=== PATIENT | female | born 1980 | race Asian ===

== ENCOUNTER 2019-11-23 15:45 | Outpatient (CLI) | payer OTHER, SELFPAY ==
--- NOTE | ~2019-11-23 | MM_ITS ---
EXAMINATION: MM screening alva BI w mere HISTORY: Baseline screening mammogram TECHNIQUE: Craniocaudal and mediolateral oblique 3-D tomosynthesis images were obtained and synthetic 2-D images were generated. CAD analysis was submitted and interpreted. COMPARISON: None, baseline BREAST PARENCHYMAL COMPOSITION: There are scattered areas of fibroglandular density. FINDINGS: RIGHT BREAST: An asymmetry is present in the anterior third of the slightly inner breast 2.4 cm from the nipple on the craniocaudal view. LEFT BREAST: There is no evidence of suspicious mass, calcification, or architectural distortion to s uggest malignancy. IMPRESSION: 1. Right breast asymmetry on the craniocaudal view. 2. Additional mammographic views and possible breast ultrasound are recommended to evaluate for malig zia and establish a baseline given that this is the first mammographic examination. BI-RADS Category 0: Incomplete: Needs additional imaging evaluation. Reviewed, dictated and finalized at location A. IMPRESSION: 1. Right breast asymmetry on the craniocaudal view. 2. Additional mammographic views and possible breast ultrasound are recommended to evaluate for malignancy and establish a baseline given that this is the fir st mammographic examination. BI-RADS Category 0: Incomplete: Needs additional imaging evaluation.
== END 2019-11-23 15:46 | disposition home or self-care (01) ==
LOC: ANHIMG 15:50
PROVIDERS: Visit Provider Obstetrics & Gynecology Gynecology
DX: Z12.31 Encounter for screening mammogram for malignant neoplasm of breast (principal); R92.8 Other abnormal and inconclusive findings on diagnostic imaging of breast
CPT/HCPCS: 77063; 77067

== ENCOUNTER 2019-12-17 11:05 | Outpatient (CLI) | payer OTHER, SELFPAY ==
--- NOTE | ~2019-12-17 | MM_ITS ---
EXAMINATION: MM diagnostic mammo unilat RT HISTORY: Right breast mammographic asymmetry in anterior third of slightly inner breast 2.4 cm from n ipple on screening craniocaudal view of 11/23/2019 TECHNIQUE: Additional 3-D tomosynthesis images of the right breast were performed and synthetic 2-D i mages were generated. CAD analysis was submitted and interpreted. COMPARISON: 11/23/2019bilateral digital screening mammogram FINDINGS: No reproducible mass is detected. There are superimposed vessels simulating a mass on the s creening CC view of 11/23/2019. IMPRESSION: 1. No mammographic evidence of malignancy 2. Routine mammographic screening is recommended. BI-RADS Category 1: Negative Reviewed, dictated and finalized at location A.
== END 2019-12-17 11:06 | disposition home or self-care (01) ==
LOC: ANHIMG 11:06
PROVIDERS: Visit Provider Obstetrics & Gynecology Gynecology
DX: R92.8 Other abnormal and inconclusive findings on diagnostic imaging of breast (principal)
CPT/HCPCS: 77065

== ENCOUNTER 2020-12-18 15:40 | Outpatient (CLI) | payer OTHER, SELFPAY ==
--- NOTE | ~2020-12-18 | MM_ITS ---
EXAMINATION: MM screening alva BI w mere HISTORY: Screening mammogram TECHNIQUE: Craniocaudal and mediolateral oblique 3-D tomosynthesis images were obtained and synthetic 2-D images were generated. CAD analysis was submitted and interpreted. COMPARISON: diagnostic right mammogram 11/23/2019 bilateral digital screening mammogram BREAST PARENCHYMAL COMPOSITION: There are scattered areas of fibroglandular density. FINDINGS: There is a circumscribed 3.8 mm benign-appearing opacity in the mid inner right breast at m id depth, not significantly changed since 12/17/2019. There is no evidence of suspicious mass, calcif ication, or architectural distortion to suggest malignancy in either breast. There has been no suspic ious interval change. IMPRESSION: 1. No mammographic evidence of malignancy. 2. Recommend routine screening mammography in one year. BI-RADS Category 2: Benign finding(s). Reviewed, dictated and finalized at location A.
== END 2020-12-18 15:41 | disposition home or self-care (01) ==
LOC: ANHIMG 15:41
PROVIDERS: Visit Provider Obstetrics & Gynecology Gynecology
DX: Z12.31 Encounter for screening mammogram for malignant neoplasm of breast (principal)
CPT/HCPCS: 77063; 77067

== ENCOUNTER 2022-01-22 17:00 | Outpatient (CLI) | payer OTHER, SELFPAY ==
--- NOTE | ~2022-01-22 | MM_ITS ---
EXAMINATION: MM screening alva BI w mere HISTORY: Screening mammogram TECHNIQUE: Craniocaudal and mediolateral oblique 3-D tomosynthesis images were obtained and synthetic 2-D images were generated. CAD analysis was submitted and interpreted. COMPARISON: 12/18/2020 bilateral screening mammogram 12/17/2019 diagnostic right mammogram 11/23/2019 bilateral screening mammogram BREAST PARENCHYMAL COMPOSITION: There are scattered areas of fibroglandular density. FINDINGS: There is no evidence of suspicious mass, calcification, or architectural distortion to sugg est malignancy in either breast. There has been no suspicious interval change. IMPRESSION: 1. No mammographic evidence of malignancy. 2. Recommend routine screening mammography in one year. BI-RADS Category 1: Negative Reviewed, dictated and finalized at location A. AIN/AIRLINE PILOT
== END 2022-01-22 17:01 | disposition home or self-care (01) ==
LOC: ANHIMG 17:01
PROVIDERS: Visit Provider Nurse Practitioner
DX: Z12.31 Encounter for screening mammogram for malignant neoplasm of breast (principal)
CPT/HCPCS: 77063; 77067

== ENCOUNTER 2023-02-26 07:53 | Outpatient (CLI) | payer OTHER, SELFPAY ==
--- NOTE | ~2023-02-26 | MM_ITS ---
EXAMINATION: MM screening [facility] BI w mere HISTORY: Screening mammogram TECHNIQUE: Craniocaudal and mediolateral oblique 3-D tomosynthesis images were obtained and synthetic 2-D images were generated. CAD analysis was submitted and interpreted. COMPARISON: 01/22/2022, 12/18/2020, 12/17/2019 BREAST PARENCHYMAL COMPOSITION: There are scattered areas of fibroglandular density. FINDINGS: No suspicious mass, calcification, or architectural distortion are identified in either hank ast to suggest malignancy. There has been no suspicious interval change. IMPRESSION: 1. No mammographic evidence of malignancy. 2. Recommend routine screening mammography in one year. BI-RADS Category 1: Negative Reviewed, dictated and finalized at location A. DUSTER
== END 2023-02-26 07:54 | disposition home or self-care (01) ==
LOC: ANHIMG 07:54
PROVIDERS: Visit Provider Nurse Practitioner
DX: Z12.31 Encounter for screening mammogram for malignant neoplasm of breast (principal)
CPT/HCPCS: 77063; 77067

== ENCOUNTER 2024-10-08 14:31 | Outpatient (CLI) | payer OTHER, SELFPAY ==
--- NOTE | ~2024-10-08 | US_ITS ---
EXAMINATION: US pelvic complete w TV INDICATION: Evaluate IUD placement Comparison:No prior studies for comparison. TECHNIQUE: Multiple transabdominal and endovaginal sonographic images of the pelvis performed. FINDINGS: The uterus measures 8.9 x 4.7 x 7 cm. There are fibroids of the uterine myometrium, largest measuring 1.3 cm. The endometrial complex measures 6 mm. IUD is present in the endometrium. There is trace fluid in the lower endometrium and cervix. The right ovary measures 2.1 x 2.2 x 2.8 cm and the left ovary measures 3.9 x 2.4 x 2.6 cm. There ar e small follicles in each ovary. Normal doppler signal in both ovaries. There is no free fluid in the pelvis. There are no abnormal masses seen on either side. IMPRESSION: 1. Fibroid uterus, largest discrete fibroid measuring 1.3 cm. 2: IUD present in the endometrium. Reviewed, dictated and finalized at location A.
--- OUTSIDE RECORDS SUMMARY | 2024-10-08 14:39 | XMS_ITS | Clinical Summary ---
Author Organization [employer] Address [address] 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
--- OUTSIDE RECORDS SUMMARY | 2024-10-08 14:39 | XMS_ITS | Encounter Summary ---
Author Organization [employer] Address [address] [place] [address] Care Team Providers Care Central Supply Tech Name Role Phone Conversion, History Primary Care Provider Prudence lucas Encounter Details Date Type Department Care Team (Late st Contact Info) Description 05/06/2007 Outpatient Historical [place] [address] [place] [address] [facility] Social History Tobacco Use Types Packs/Day Years Used Date Smoking Tobacco: Never Assessed Comments Unknown Sex and Gender Information Value Date Recorded Sex Assigned at Not on file Legal Sex Female 5:27 AM PERINATAL TECH Gender Identity Not on file Sexual Orientation Not on file documented as of this encounter Plan of Treatment Not on file documented as of this encounter Procedures Procedure Name Priority Date/Time Associated Diagnosis Comments PATHOLOGY Routine 06/16/2007 5:00 PM CDT POC , URINE Routine 06/16/2007 1:25 PM CDT HEMOGLOBIN AND HEMATOCRIT Stat 06/16/2007 1:19 PM CDT documented in this encounter Results * PATHOLOGY (06/16/2007 5:00 PM CDT) FINAL REPORT [facility] [address], [place] [address] Patient: TRINI BERUMEN : 1980 Procedure Date: 06/16/2007 Accession Date: 06/17/2007 Case No: [id number] Ordering Dr: ARISTEO GALE Case types AW, BW, FW, NW and SH are [place] [facility] [place] SURGICAL PATHOLOGY & NON-GYNECOLOGIC CYTOPATHOLOGY REPORT DIAGNOSIS SOFT TISSUE, LEFT ORBIT, EXCISION: - VASCULAR MALFORMATION. Specimen Description: Arteriovenous malformation left orbit. Operative Procedure: Not stated. Patient Information/Histo ry/Diagnosis: Not stated. Gross: Received in a single container labeled Trini Berumen, arteriovenous malformation left orbit is a 4 x 2.5 x 1.3-cm unoriented excision of yellow-sosa fibrofatty tissue. The surface is cauterized and hemorrhagic. The cut surface is remarkable for multiple dilated blood vessels. The remainder of the cut surface is yellow-sosa and lobulated. The specimen is entirely, sequentially submitted in cassettes A1 through A5. MACARIOA/SIERRA 06.17.2007 08:51 am Microscopic: Received are slides labeled [id number], Trini Berumen. Sections of left orbit identify a proliferation of variably-sized, thick and thin-walled blood vessels distributed amidst collagenous tissue, skeletal muscle, and adipose tissue. Vascular spaces are distended with red blood cells. There are focal, associated infiltrates of chronic inflammatory cells. PJC/PJS 06.18.2007 10:59 am Staging Form: No ELECTRONIC SIGNATURE FOR AYAKA BOLES M.D.- 06/18/07 12:59 pm INTERFACE SYSTEM 06/16/2007 5:00 PM CDT us Aristeo Gale MD PATHOLOGY/CYTOLOGY ORDERABLES Fi nal Result Performing Organization Address City/[facility]/ZIP Co de Phone Number INTERFACE SYSTEM Refer to clinic/hospital department * POC , URINE (06/16/2007 1:25 PM CDT) , URINE POC Negative Negative [facility] Urine specimen (specimen) 06/16/2007 1:25 PM CDT 06/16/2007 1:25 PM CDT us Aristeo Gale MD POINT OF CARE TESTING Final Resu lt [facility] [address] [place] [address] * HEMOGLOBIN AND HEMATOCRIT (06/16/2007 1:19 PM CDT) HEMOGLOBIN 14.3 11.8 - 14.8 g/dL [facility] HEMATOCRIT 43.1 35.5 - 44.0 % [facility] Blood specimen (specimen) 06/16/2007 1:19 PM CDT 06/16/2007 1:32 PM CDT Narrative [facility] - 06/16/2007 1:37 PM CDT RM35 Aristeo Greenberg [place] HEMATOLOGY ORDERABLES Final Resu lt [facility] [address] [place], [place] [address] documented in this encounter Visit Diagnoses Diagnosis 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
--- OUTSIDE RECORDS SUMMARY | 2024-10-08 14:39 | XMS_ITS | Encounter Summary ---
Author Organization [employer] Address 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
--- OUTSIDE RECORDS SUMMARY | 2024-10-08 14:39 | XMS_ITS | Encounter Summary ---
Author Organization [employer] Address [address] [place] [address] Care Team Providers Care Doctor Of Naprapathic Medicine Name Role Phone Conversion, History Primary Care Provider Prudence lucas Encounter Details Date Type Department Care Team (Late st Contact Info) Description 01/19/2007 Inpatient Historical [facility] Shan Rivas MD [address] [place] [address] -x0 (Work) Social History Tobacco Use Types Packs/Day Years Used Date Smoking Tobacco: Never Assessed Comments Unknown Sex and Gender Information Value Date Recorded Sex Assigned at Not on file Legal Sex Female 5:27 AM SUPERVISOR PHOTOSTAT Gender Identity Not on file Sexual Orientation Not on file documented as of this encounter Plan of Treatment Not on file documented as of this encounter Procedures Procedure Name Priority Date/Time Associated Diagnosis Comments PT AND APTT Routine 01/19/2007 11:42 AM SUPERVISOR PHOTOSTAT PLATELET COUNT Routine 01/19/2007 11:42 AM SUPERVISOR PHOTOSTAT HCG QUANTITATIVE, BLOOD Routine 01/19/2007 11:42 AM SUPERVISOR PHOTOSTAT BUN Routine 01/19/2007 11:42 AM SUPERVISOR PHOTOSTAT CREATININE Routine 01/19/2007 11:42 AM SUPERVISOR PHOTOSTAT documented in this encounter Results * BETA HCG QUANTITATIVE, BLOOD (01/19/2007 11:42 AM SUPERVISOR PHOTOSTAT) HCG QUANT, BLOOD <5 0 - 5 mIU/mL INTERFACE SYSTEM Comment: Result of 5 - 25 mIU/mL is indeterminant for , repeat of test recommemded in 48 hours. Reference Range: Gestational Age: 3 Weeks 5.8 - 71.2 mIU/mL 4 Weeks 9.5 - 750 mIU/mL 5 Weeks 217 - 7138 mIU/mL 6 Weeks 158 - 31,795 mIU/mL 7 Weeks 3697 - 163,563 mIU/mL 8 Weeks 32,065 - 149,571 mIU/mL 9 Weeks 63,803 - 151,410 mIU/mL 10 Weeks 46,509 - 186,977 mIU/mL 12 Weeks 27,832 - 210,612 mIU/mL 14 Weeks 13,950 - 62,530 mIU/mL 15 Weeks 12,039 - 70,971 mIU/mL 16 Weeks 9040 - 56,451 mIU/mL 17 Weeks 8175 - 55,868 mIU/mL 18 Weeks 8099 - 58,176 mIU/mL Heterophile antibodies and other interfering substances in the serum of some patients may cause a false-positive result in this assay. Before making a diagnosis of malignancy or ectopic ,the result of thi s test should be confirmed with a urine HCG test and correlated with other clinical evidence. 01/19/2007 11:4 2 AM SUPERVISOR PHOTOSTAT us Shan Rivas MD CHEMISTRY ORDERABLES Edited Performing Organization Address [facility] Phone Number INTERFACE SYSTEM Refer to clinic/hospital department * CREATININE (01/19/2007 11:42 AM SUPERVISOR PHOTOSTAT) CREATININE 0.51 0.51 - 0.95 mg/dL INTERFACE SYSTEM 01/19/2007 11:4 2 AM SUPERVISOR PHOTOSTAT us Shan Rivas MD CHEMISTRY ORDERABLES Edited Performing Organization Address [facility] Phone Number INTERFACE SYSTEM Refer to clinic/hospital department * BUN (01/19/2007 11:42 AM SUPERVISOR PHOTOSTAT) BUN 8 6 - 20 mg/dL INTERFACE SYSTEM 01/19/2007 11:4 2 AM SUPERVISOR PHOTOSTAT us Shan Rivas MD CHEMISTRY ORDERABLES Edited Performing Organization Address [facility] Phone Number INTERFACE SYSTEM Refer to clinic/hospital department * PLATELET COUNT (01/19/2007 11:42 AM SUPERVISOR PHOTOSTAT) PLATELETS 301 140 - 350 K/uL INTERFACE SYSTEM MPV 10.9 9.3 - 12.4 fL INTERFACE SYSTEM 01/19/2007 11:4 2 AM SUPERVISOR PHOTOSTAT Shan Rivas MD HEMATOLOGY ORDERABLES Edited Performing Organization Address [facility] Phone Number INTERFACE SYSTEM Refer to clinic/hospital department * PT AND APTT (01/19/2007 11:42 AM SUPERVISOR PHOTOSTAT) PROTIME 13.1 12.7 - 15.1 Seconds INTERFACE SYSTEM INR 1.0 0.9 - 1.1 INTERFACE SYSTEM Comment: INR Therapeutic Range: Adult: 2.0 - 3.0 for pulmonary embolism or prophylaxis against venous thrombosis or systemic embolization. 2.0 - 3.0 for patients with tissue heart valves. 2.5 - 3.5 for patients with mechanical heart valves or post OR. Pediatric (12 years and under): 1.5 - 3.0 Although the target range in children is not well established , INR values of 1.5 - 3.0 are recommended for most patients. Higher values have been used in children with prosthetic cardiac valves and hereditary clotting disorders. (<3 days) therapeutic ranges have not been established. PTT 29.6 24.4 - 36.4 Seconds INTERFACE SYSTEM Comment: PTT Therapeutic Range: Heparin Level PTT (seconds) <0.10 units/mL <53 0.10 - 0.30 units/mL 53 - 67 0.30 - 0.70 units/mL* 67 - 95* 0.70 - 1.00 units/mL 95 - 116 *corresponds to therapeutic range for unfractionated heparin 01/19/2007 11:4 2 AM SUPERVISOR PHOTOSTAT Result [facility] us Shan Rivas MD HEMATOLOGY ORDERABLES Edited Performing Organization Address [facility] Phone Number INTERFACE SYSTEM Refer to clinic/hospital department documented in this encounter Visit Diagnoses Not on filedocumented in this encounter Care Teams Doctor Of Naprapathic Medicine Relationship Specialty Start Date End Date Conversion, History PCP - General 01/19/07 documented as of this encounter
== END 2024-10-08 14:32 | disposition home or self-care (01) ==
PROVIDERS: PCP Obstetrics & Gynecology Gynecology; Visit Provider Obstetrics & Gynecology Gynecology
DX: T83.32XA Displacement of intrauterine contraceptive device, initial encounter (principal)
CPT/HCPCS: 76830; 76856